=== PATIENT | female | born 1985 | race Caucasian/White ===

== ENCOUNTER 2020-05-05 15:46 | Emergency (ER) | payer OTHER ==
--- NOTE | 2020-05-05 16:03 | TELE ---
HPI Do you have fever,cough or shortness of breath?: No - General Reason For Visit: COVID 19 TEST History Source: Patient Review of Systems - Review of Systems Constitutional: No: Fever *Physical Exam - Physical Exam Respiratory/Chest: negative: Respiratory Distress Discharge Diagnosis at time of Disposition: Encounter for laboratory testing for COVID-19 virus - Referrals Follow-up Referral(s): Ryan Zepeda MD [Primary Care Provider] - - Patient Instructions - Discharge Disposition: HOME Condition at time of Disposition: Stable
--- NOTE | 2020-05-09 19:30 | PDOC ---
Patient Follow-up (Call Back) - Post ED Follow - Up Condition at time of discharge: Stable Disposition at time of original discharge: HOME - Disposition Additional Instructions/Notes: Patient called for results of COVID testing done on 05/09/20. Test cancelled by the Lab. Encourage to go for testing again if she was concerned.
== END 2020-05-05 16:03 | disposition home or self-care (01) ==
LOC: JVIRT 15:46
DX: Z11.59 Encounter for screening for other viral diseases (principal)
CPT/HCPCS: Q3014-GT